=== PATIENT | female | born 1965 | race Caucasian/White ===

== ENCOUNTER 2018-07-11 14:10 | Emergency (ER) | payer OTHER ==
[2018-07-11] MEDS ORDERED: Aspirin 81 MG Tab.Chew PO ONE (14:30)
[2018-07-11] MEDS ORDERED: Nitroglycerin 0.4 MG Tab.SL SL PRN (15:27)
--- NOTE | 2018-07-11 15:27 | EDM.PDOC ---
ED HPI GENERAL MEDICAL PROBLEM - General Chief Complaint: General Stated Complaint: chest pain Time Seen by Provider: 07/11/18 14:53 Source of Information: Reports: Patient History Limitations: Reports: No Limitations - History of Present Illness INITIAL COMMENTS - FREE TEXT/NARRATIVE: This is a 53yo F with chest pressure for the past 48hours. She has had prior episodes that have been short and intermittent. This last episode did not resolve and worsened with exertion. She states she has had some dizziness with with pressure but no other symptoms. She does feel slight shortness of breath. Patient denies prior CAD. Patient does have a smoking history on and off with 5years of 3ppd and other years with 1ppd for a total of approximately 30pack years. She has had multiple surgeries without complications as listed: 2 C-sections, appendectomy, cholecystectomy and hysterectomy. Onset Date: 07/09/18 Duration: Day(s):, Constant Location: Reports: Chest Quality: Reports: Pressure Severity: Mild Improves with: Reports: None Worsens with: Reports: Movement Context: Reports: Activity Associated Symptoms: Reports: Chest Pain, Shortness of Breath Chest Pain Score (Numeric/FACES): 3 - Related Data Allergies Allergy/AdvReac Type Severity Reaction Status Date / Time No Known Allergies Allergy Verified 07/11/18 14:45 Home Meds: Home Meds Aspirin 81 mg PO DAILY 07/11/18 [History] Lisinopril 5 mg PO DAILY 07/11/18 [History] traZODone 200 mg PO DAILY 07/11/18 [History] Past Medical History HEENT History: Reports: Other (See Below) Other HEENT History: glasses 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 ED EXAM, GENERAL - Physical Exam Exam: See Below Exam Limited By: No Limitations General Appearance: Alert, WD/WN, No Apparent Distress Eye Exam: Bilateral Eye: EOMI, PERRL Ears: Normal External Exam Nose: Normal Inspection Throat/Mouth: Normal Inspection, Normal Lips, Normal Teeth Head: Atraumatic, Normocephalic Neck: Normal Inspection, Supple, Non-Tender Respiratory/Chest: No Respiratory Distress, Lungs Clear, Normal Breath Sounds, No Accessory Muscle Use, Chest Non-Tender Cardiovascular: Normal Peripheral Pulses, Regular Rate, Rhythm, No Edema, No JVD , No Murmur, No Rub Peripheral Pulses: 2+: Carotid (L), Carotid (R), Dorsalis Pedis (L), Dorsalis Pedis (R) GI/Abdominal: Normal Bowel Sounds Back Exam: Normal Inspection Extremities: Normal Inspection Neurological: Alert, Oriented, CN II-XII Intact, Normal Cognition, Normal Gait, Normal Reflexes, No Motor/Sensory Deficits Psychiatric: Normal Affect, Normal Mood Course - Vital Signs Last Recorded V/S: Last Vital Signs Temp 36.6 C 07/11/18 14:53 Pulse 67 07/11/18 17:46 Resp 16 07/11/18 17:46 BP 140/84 07/11/18 17:46 Pulse Ox 97 07/11/18 17:46 - Orders/Labs/Meds Labs: Laboratory Tests 07/11/18 07/11/18 07/11/18 Range/Units 14:15 14:15 14:15 WBC 7.4 (4.0-11.0) K/uL RBC 4.65 (3.80-5.80) M/uL Hgb 13.9 (11.5-16.5) g/dL Hct 41.7 (37.0-47.0) % MCV 90 (76-96) fL MCH 29.9 (27.0-32.0) pg MCHC 33.3 (31.0-35.0) g/dL RDW 13.3 (11.0-16.0) % Plt Count 307 (150-500) K/uL MPV 9.5 (6.0-10.0) fL Neut % (Auto) 58.3 (45.0-70.0) % Lymph % (Auto) 29.1 (20.0-40.0) % [place] % (Auto) 10.2 H (3.0-10.0) % Eos % (Auto) 1.9 (1.0-5.0) % Baso % (Auto) 0.5 (0.0-0.5) % Neut # (Auto) 4.29 (2.00-7.50) K/uL Lymph # (Auto) 2.14 (1.50-4.00) K/uL [place] # (Auto) 0.75 (0.20-0.80) K/uL Eos # (Auto) 0.14 (0.04-0.40) K/uL Baso # (Auto) 0.04 (0.02-0.10) K/uL PT 9.3 (9.0-11.5) sec INR 0.9 L (1.0-3.5) D-Dimer, Quantitative (0-400) ng/mL Sodium 145 (136-145) mmol/L Potassium 3.8 (3.5-5.1) mmol/L Chloride 106 (98-107) mmol/L Carbon Dioxide 28.7 (21.0-32.0) mmol/L Anion Gap 14.1 (5.0-15.0) mmol/L BUN 11 (8-26) mg/dL Creatinine 0.79 (0.55-1.02) mg/dL Est Cr Clr Drug Dosing TNP Estimated GFR (MDRD) > 60 (>60) MLS/MIN BUN/Creatinine Ratio 13.9 (6-25) Glucose 109 H (74-100) mg/dL Calcium 9.1 (8.5-10.1) mg/dL Total Bilirubin 0.2 (0.0-1.0) mg/dL AST 25 (15-37) U/L ALT 41 (12-78) U/L Alkaline Phosphatase 88 (46-116) U/L Troponin I < 0.017 (0.000-0.060) ng/mL B-Natriuretic Peptide 113 (0-125) pg/mL Total Protein 7.8 (6.4-8.2) g/dL Albumin 3.8 (3.4-5.0) g/dL Globulin 4.0 (2.2-4.2) g/dL Albumin/Globulin Ratio 0.9 (0.8-2.0) TSH, Ultra Sensitive 2.510 (0.358-3.740) uIU/mL 02/03/19 02/03/19 Range/Units 14:15 17:15 WBC (4.0-11.0) K/uL RBC (3.80-5.80) M/uL Hgb (11.5-16.5) g/dL Hct (37.0-47.0) % MCV (76-96) fL MCH (27.0-32.0) pg MCHC (31.0-35.0) g/dL RDW (11.0-16.0) % Plt Count (150-500) K/uL MPV (6.0-10.0) fL Neut % (Auto) (45.0-70.0) % Lymph % (Auto) (20.0-40.0) % [place] % (Auto) (3.0-10.0) % Eos % (Auto) (1.0-5.0) % Baso % (Auto) (0.0-0.5) % Neut # (Auto) (2.00-7.50) K/uL Lymph # (Auto) (1.50-4.00) K/uL [place] # (Auto) (0.20-0.80) K/uL Eos # (Auto) (0.04-0.40) K/uL Baso # (Auto) (0.02-0.10) K/uL PT (9.0-11.5) sec INR (1.0-3.5) D-Dimer, Quantitative 398 (0-400) ng/mL Sodium (136-145) mmol/L Potassium (3.5-5.1) mmol/L Chloride (98-107) mmol/L Carbon Dioxide (21.0-32.0) mmol/L Anion Gap (5.0-15.0) mmol/L BUN (8-26) mg/dL Creatinine (0.55-1.02) mg/dL Est Cr Clr Drug Dosing Estimated GFR (MDRD) (>60) MLS/MIN BUN/Creatinine Ratio (6-25) Glucose (74-100) mg/dL Calcium (8.5-10.1) mg/dL Total Bilirubin (0.0-1.0) mg/dL AST (15-37) U/L ALT (12-78) U/L Alkaline Phosphatase (46-116) U/L Troponin I 0.018 (0.000-0.060) ng/mL B-Natriuretic Peptide (0-125) pg/mL Total Protein (6.4-8.2) g/dL Albumin (3.4-5.0) g/dL Globulin (2.2-4.2) g/dL Albumin/Globulin Ratio (0.8-2.0) TSH, Ultra Sensitive (0.358-3.740) uIU/mL Meds: Medications Discontinued Medications Generic Name Dose Route Start Last Admin Trade Name Freq PRN Reason Stop Dose Admin Aspirin 324 mg 07/11/18 14:30 07/11/18 14:30 Aspirin PO 07/11/18 14:31 324 mg ONETIME ONE Administration Atorvastatin Calcium Confirm 07/11/18 16:06 07/11/18 16:17 Lipitor Administered 07/11/18 16:07 Not Given Dose 40 mg .ROUTE .STK-MED ONE Atorvastatin Calcium 40 mg 07/11/18 16:16 07/11/18 16:26 Lipitor PO 07/11/18 16:17 40 mg ONETIME ONE Administration Clopidogrel Bisulfate 300 mg 07/11/18 16:15 07/11/18 16:27 Plavix PO 07/11/18 16:16 300 mg ONETIME ONE Administration Metoprolol Succinate 12.5 mg 07/11/18 16:15 Toprol Xl PO DAILY ELIUD Metoprolol Tartrate Confirm 07/11/18 16:11 07/11/18 16:18 Lopressor Administered 07/11/18 16:12 Not Given Dose 25 mg .ROUTE .STK-MED ONE Metoprolol Tartrate 12.5 mg 07/11/18 16:30 07/11/18 16:25 Lopressor PO 12.5 mg Q12H ELIUD Administration Metoprolol Tartrate 25 mg 07/11/18 16:00 Lopressor .ROUTE 07/11/18 16:01 .STK-MED ONE Nitroglycerin 0.4 mg 07/11/18 15:27 07/11/18 15:30 Nitrostat SL 0.4 mg Q5M PRN Administration Chest Pain - Re-Assessments/Exams Free Text/Narrative Re-Assessment/Exam: One Nitro SL tablet given. Symptoms resolved after a few minutes. Symptoms have not returned. Departure - Departure Time of Disposition: 18:00 Disposition: Home, Self-Care 01 Condition: Good Clinical Impression: Chest pressure, Angina pectoris - Discharge Information Instructions: Metoprolol tablets, Clopidogrel tablets, Nonspecific Chest Pain, [id number], Atorvastatin tablets Referrals: PCP,None [Primary Care Provider] - Forms: ED Department Discharge Care Plan Goals: To be in [place] for appointment with Dr. Dahl on Thursday at 8:15 am. Will schedule angiogram for . Take metoprolol before bedtime and have rx filled at pharmacy for metoprolol 12.5 2 x day and atorvastatin 40mg HS and Plavix as ordered. - Problem List & Annotations (1) Chest pressure SNOMED Code(s): 204964061 Code(s): R07.89 - OTHER CHEST PAIN Status: Acute Priority: High (2) Angina pectoris SNOMED Code(s): 748550054 Code(s): I20.9 - ANGINA PECTORIS, UNSPECIFIED Status: Acute Priority: High - Problem List Review Problem List Initiated/Reviewed/Updated: Yes - Assessment/Plan Plan: Discussed plan of care with patient. Counseled on negative EKG, negative troponins and labs. 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 Dahl stone carver and discussed plan for this patient. Risks discussed with patient regarding outpatient workup and current inpatient workup. Patient adamant she would like outpatient work up despite risks of further coronary event and mortality. Patient counseled on f/u appointment on Thursday 815am with Dr. Dahl in clinic for discussion of further workup and possible cath on or other management. Patient agrees with plan of care and f/u. Discussed plan of medications and patient started on Atorvastatin 40mg daily, Plavix 300mg loading dose and 75mg daily after, Metoprolol tartrate 12.5mg BID and ASA 325 already given and 81mg daily after. Patient meds sent by [facility].
[2018-07-11] MEDS ORDERED: Metoprolol Tartrate 25 MG Tab ONE ×2 (16:00→16:11)
[2018-07-11] MEDS ORDERED: atorvaSTATin 40 MG Tab ONE (16:06)
[2018-07-11] MEDS ORDERED: Clopidogrel 75 MG Tab PO ONE (16:15)
[2018-07-11] MEDS ORDERED: Metoprolol Succinate 25 MG Tab.ER PO SCH (16:15)
[2018-07-11] MEDS ORDERED: atorvaSTATin 40 MG Tab PO ONE (16:16)
[2018-07-11] MEDS ORDERED: Metoprolol Tartrate 25 MG Tab PO SCH (16:30)
--- NOTE | 2018-07-12 09:51 | CR ---
DATE OF SERVICE: 07/11/18 CLINICAL DATA: chest pressure, shortness of breath PORTABLE AP CHEST: No priors. The heart size is normal. The lungs are clear. No evidence of acute intrathoracic disease. [id number] [facility]
== END 2018-07-11 18:00 | disposition home or self-care (01) ==
LOC: MERGE 14:10 → LB.ED 14:10
DX: I20.9 Angina pectoris, unspecified (principal); I10 Essential (primary) hypertension; Z79.82 Long term (current) use of aspirin; Z79.899 Other long term (current) drug therapy; Z87.891 Personal history of nicotine dependence
CPT/HCPCS: 36415; 71045; 80053; 83880; 84443; 84484; 85025; 85379; 85610; 93005; 99285; A9270

== ENCOUNTER 2018-07-14 10:39 | Emergency (ER) | payer OTHER ==
--- NOTE | 2018-07-14 11:07 | EDM.PDOC ---
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 No sweating, nausea or vomiting. She had to take 3 doses of S/L nitro and pain resolved in about 45 minutes and the pain completely resolved. Pt went to sleep. Since, she woke up in the morning she has not had any more chest pain or discomfort. No nausea, shortness of breath. Pt was scheduled for coronary angiogram tomorrow, when she called Dr. Dahl's office she was told to come to emergency room for workup. Presently patient has no complaints. Vitals are stable. Onset: Today Onset Date: 07/14/18 Onset Time: 03:00 Duration: Resolved Prior to Arrival Location: Reports: Chest Quality: Reports: Ache Severity: Mild Associated Symptoms: Reports: Chest Pain. Denies: Confusion, Cough, Diaphoresis , Fever/Chills, Headaches, Nausea/Vomiting, Rash, Seizure, Shortness of Breath, Syncope, Weakness - Related Data Allergies Allergy/AdvReac Type Severity Reaction Status Date / Time No Known Allergies Allergy Verified 07/14/18 12:26 Home Meds: Home Meds Lisinopril 5 mg PO DAILY 07/22/16 [History] traZODone HCl [Trazodone HCl] 200 mg PO QPM 07/22/16 [History] Clopidogrel [Plavix] 75 mg PO DAILY 07/14/18 [History] Metoprolol Tartrate 12.5 mg PO DAILY 07/14/18 [History] atorvaSTATin [Lipitor] 40 mg PO BEDTIME 07/14/18 [History] Past Medical History Cardiovascular History: Reports: Blood Clots/VTE/DVT, Hypertension 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 Denies: Lightheadedness GI/Abdominal: Denies: Abdominal Pain, Nausea, Vomiting Musculoskeletal: Denies: Neck Pain, Joint Pain, Joint Swelling Skin: Denies: Bruising, Pruritis, Rash ED EXAM, GENERAL - Physical Exam Exam: See Below Exam Limited By: No Limitations General Appearance: Alert, WD/WN, No Apparent Distress Eye Exam: Bilateral Eye: EOMI, PERRL Ears: Normal External Exam, Normal Canal, Hearing Grossly Normal, Normal TMs Ear Exam: Bilateral Ear: Auricle Normal, Canal Normal, TM normal Nose: Normal Inspection, Normal Mucosa, No Blood Throat/Mouth: Normal Inspection, Normal Lips, Normal Teeth, Normal Gums, Normal Oropharynx, Normal Voice, No Airway Compromise Head: Atraumatic, Normocephalic Neck: Normal Inspection, Supple, Non-Tender, Full Range of Motion Respiratory/Chest: No Respiratory Distress, Lungs Clear, Normal Breath Sounds, No Accessory Muscle Use, Chest Non-Tender Cardiovascular: Normal Peripheral Pulses, Regular Rate, Rhythm, No Edema, No Gallop, No JVD, No Murmur, No Rub GI/Abdominal: Normal Bowel Sounds, Soft, Non-Tender, No Organomegaly, No Distention, No Abnormal Bruit, No Mass Extremities: Normal Inspection, Normal Range of Motion, Non-Tender, Normal Capillary Refill, No Pedal Edema Neurological: Alert, Oriented, CN II-XII Intact, Normal Cognition, Normal Gait, Normal Reflexes, No Motor/Sensory Deficits Skin Exam: Warm, Intact EKG INTERPRETATION Rhythm: NSR Rate (Beats/Min): 71 [place]: Normal P-Wave: Present QRS: Normal ST-T: Normal QT: Normal Course - Vital Signs Text/Narrative:: Patient has been asymptomatic in the emergency room. Vitals are stable. He blood pressure is 140/90mmhg, she only took her [id number] today and has not taken other meds. Her EKG is in normal sinus rhythm. CBC stable. Troponin is elevated at 2.01.Appears like Non-STEMI.She did receive metoprolol 25mg orally. I did contact [facility], And discuss patient with Dr. Agustin, Embroiderer Hand emulsion operator.Per his recommendation did give plavix 300mg orally and start her on heparin drip at 4000 units bolus followed by 1000units per hr. Pt is stable and has been chest pain free since she has been in the emergency room. Plan is to transfer patient to [facility] under care of Dr. Cordova, for further workup. Pt is hemodynamically stable at the time of transfer. - Orders/Labs/Meds Orders: Active Orders 24 hr Category Date Time Status EKG Documentation Completion [RC] ASDIRECTED Care 07/14/18 11:01 Active Chest 1V Frontal [CR] Stat Exams 07/14/18 11:01 Taken COMPREHENSIVE METABOLIC PN,CMP [CHEM] Stat Lab 07/14/18 11:05 Received TROPONIN I [CHEM] Stat Lab 07/14/18 11:05 Received Labs: Laboratory Tests 07/14/18 Range/Units 11:05 WBC 10.1 D (4.0-11.0) K/uL RBC 4.57 (3.80-5.80) M/uL Hgb 13.6 (11.5-16.5) g/dL Hct 41.0 (37.0-47.0) % MCV 90 (76-96) fL MCH 29.8 (27.0-32.0) pg MCHC 33.2 (31.0-35.0) g/dL RDW 13.3 (11.0-16.0) % Plt Count 315 (150-500) K/uL MPV 9.7 (6.0-10.0) fL Neut % (Auto) 69.7 (45.0-70.0) % Lymph % (Auto) 21.6 (20.0-40.0) % [place] % (Auto) 7.9 (3.0-10.0) % Eos % (Auto) 0.4 L (1.0-5.0) % Baso % (Auto) 0.4 (0.0-0.5) % Neut # (Auto) 7.02 (2.00-7.50) K/uL Lymph # (Auto) 2.18 (1.50-4.00) K/uL [place] # (Auto) 0.80 (0.20-0.80) K/uL Eos # (Auto) 0.04 (0.04-0.40) K/uL Baso # (Auto) 0.04 (0.02-0.10) K/uL Departure - Departure Time of Disposition: 13:15 Disposition: DC/Tfer to Acute Hospital 02 Condition: Fair Clinical Impression: Non-STEMI (non-ST elevated myocardial infarction) - Discharge Information *PRESCRIPTION DRUG MONITORING PROGRAM REVIEWED*: Not Applicable *COPY OF PRESCRIPTION DRUG MONITORING REPORT IN PATIENT MAURILIO: Not Applicable Referrals: PCP,None [Primary Care Provider] - - Problem List & Annotations (1) Non-STEMI (non-ST elevated myocardial infarction) SNOMED Code(s): 17640446 Code(s): I21.4 - NON-ST ELEVATION (NSTEMI) MYOCARDIAL INFARCTION Status: Acute Current Visit: Yes - Problem List Review Problem List Initiated/Reviewed/Updated: Yes - My Orders Last 24 Hours: My Active Orders 07/14/18 11:01 EKG Documentation Completion [RC] ASDIRECTED Chest 1V Frontal [CR] Stat 07/14/18 11:05 COMPREHENSIVE METABOLIC PN,CMP [CHEM] Stat TROPONIN I [CHEM] Stat - Assessment/Plan Last 24 Hours: My Active Orders 07/14/18 11:01 EKG Documentation Completion [RC] ASDIRECTED Chest 1V Frontal [CR] Stat 07/14/18 11:05 COMPREHENSIVE METABOLIC PN,CMP [CHEM] Stat TROPONIN I [CHEM] Stat Assessment:: Non Stemi Plan: Patient has been asymptomatic in the emergency room. Vitals are stable. He blood pressure is 140/90mmhg, she only took her [id number] today and has not taken other meds. Her EKG is in normal sinus rhythm. CBC stable. Troponin is elevated at 2.01.Appears like Non-STEMI.She did receive metoprolol 25mg orally. [facility] And discuss patient with Dr. Agustin, Embroiderer Hand emulsion operator.Per his recommendation did give plavix 300mg orally and start her on heparin drip at 4000 units bolus followed by 1000units per hr. Pt is stable and has been chest pain free since she has been in the emergency room. Plan is to transfer patient to [facility] under care of Dr. Cordova, for further workup. [place] [facility] helping with transfer.Pt is hemodynamically stable at the time of transfer.
[2018-07-14] MEDS ORDERED: Metoprolol Tartrate 25 MG Tab PO ONE (11:55)
--- NOTE | 2018-07-14 11:58 | CR ---
DATE OF SERVICE: 07/14/18 CLINICAL DATA: chest pain AP PORTABLE CHEST: The heart size is normal. The lungs are clear. No pneumothorax. No pleural effusions. No evidence of acute intrathoracic disease. [id number] [facility]
[2018-07-14] MEDS ORDERED: Metoprolol Tartrate 25 MG Tab ONE (12:05)
[2018-07-14] MEDS ORDERED: Clopidogrel 75 MG Tab ONE (12:12)
[2018-07-14] MEDS ORDERED: Clopidogrel 75 MG Tab PO ONE (12:14)
[2018-07-14] MEDS ORDERED: Heparin Sodium/D5W 25,000 UNITS/500 ML BAG IV SCH (12:15)
[2018-07-14] MEDS ORDERED: Heparin Sodium 5,000 UNITS/0.5 ML Syringe IVPUSH ONE (12:17)
== END 2018-07-14 13:25 ==
LOC: LB.ED 10:39
DX: I21.4 Non-ST elevation (NSTEMI) myocardial infarction (principal); I10 Essential (primary) hypertension; Z79.899 Other long term (current) drug therapy
CPT/HCPCS: 36415; 71045; 80053; 84484; 85025; 85610; 85730; 93005; 96374; 99285; A9270; J1644

== ENCOUNTER 2018-12-07 12:46 | Emergency (ER) | payer OTHER ==
--- NOTE | 2018-12-07 13:18 | EDM.PDOC ---
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 She reports having a regular appointment with cardiology tomorrow for follow-up. States no change in vision. 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 States some stress, but enjoys the work. She did take time to relax on the weekend. States she hasn't taken any nitro and no chest pain with this. - Related Data Allergies Allergy/AdvReac Type Severity Reaction Status Date / Time No Known Allergies Allergy Verified 12/07/18 13:10 Home Meds: Home Meds Lisinopril 5 mg PO DAILY 07/22/16 [History] traZODone HCl [Trazodone HCl] 200 mg PO QPM 07/22/16 [History] Aspirin 81 mg PO DAILY 07/11/18 [History] Metoprolol Tartrate 12.5 mg PO DAILY 07/14/18 [History] atorvaSTATin [Lipitor] 40 mg PO BEDTIME 07/14/18 [History] Ticagrelor [Brilinta] 90 mg PO BID 12/07/18 [History] Past Medical History HEENT History: Reports: Other (See Below) Other HEENT History: glasses Cardiovascular History: Reports: Blood Clots/VTE/DVT, Hypertension Other Cardiovascular History: hx deep vein blood clot 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 Denies: Fever, Chills HEENT: Reports: Glasses. Denies: Ear Pain, Eye Pain, Sinus Problem Respiratory: Reports: No Symptoms Cardiovascular: Reports: Lightheadedness. Denies: Chest Pain, Blood Pressure Problem, Dyspnea on Exertion Endocrine: Reports: No Symptoms GI/Abdominal: Reports: No Symptoms : Reports: No Symptoms Musculoskeletal: Reports: No Symptoms Skin: Reports: No Symptoms Neurological: Reports: Dizziness. Denies: Headache Psychiatric: Reports: No Symptoms Hematologic/Lymphatic: Reports: No Symptoms ED EXAM, GENERAL - Physical Exam Exam: See Below Exam Limited By: No Limitations General Appearance: Alert, No Apparent Distress Ears: Hearing Grossly Normal Nose: Normal Inspection Throat/Mouth: Normal Voice, No Airway Compromise Head: Atraumatic, Normocephalic Neck: Normal Inspection, Non-Tender, Full Range of Motion Respiratory/Chest: No Respiratory Distress, Lungs Clear, Normal Breath Sounds Cardiovascular: Normal Peripheral Pulses, Regular Rate, Rhythm, No Edema, No Murmur Peripheral Pulses: 2+: Dorsalis Pedis (L), Dorsalis Pedis (R) GI/Abdominal: Normal Bowel Sounds, Soft, Non-Tender Extremities: Normal Inspection, Normal Range of Motion, Non-Tender, Normal Capillary Refill Neurological: Alert, Oriented, Normal Cognition Psychiatric: Normal Affect, Normal Mood Skin Exam: Warm, Dry, Normal Color Lymphatic: No Adenopathy Course - Vital Signs Last Recorded V/S: Last Vital Signs Temp 98.1 F 12/07/18 12:55 Pulse 52 L 12/07/18 12:55 Resp 16 12/07/18 12:55 BP 167/80 H 12/07/18 12:55 Pulse Ox 96 12/07/18 12:55 - Orders/Labs/Meds Labs: Laboratory Tests 12/07/18 12/07/18 12/07/18 Range/Units 13:20 13:20 13:20 WBC 6.4 D (4.0-11.0) K/uL RBC 4.47 (3.80-5.80) M/uL Hgb 13.2 (11.5-16.5) g/dL Hct 40.3 (37.0-47.0) % MCV 90 (76-96) fL MCH 29.5 (27.0-32.0) pg MCHC 32.8 (31.0-35.0) g/dL RDW 13.7 (11.0-16.0) % Plt Count 309 (150-500) K/uL MPV 9.9 (6.0-10.0) fL Neut % (Auto) 60.6 (45.0-70.0) % Lymph % (Auto) 27.0 (20.0-40.0) % [place] % (Auto) 9.4 (3.0-10.0) % Eos % (Auto) 2.7 (1.0-5.0) % Baso % (Auto) 0.3 (0.0-0.5) % Neut # (Auto) 3.85 (2.00-7.50) K/uL Lymph # (Auto) 1.72 (1.50-4.00) K/uL [place] # (Auto) 0.60 (0.20-0.80) K/uL Eos # (Auto) 0.17 (0.04-0.40) K/uL Baso # (Auto) 0.02 (0.02-0.10) K/uL Sodium 144 (136-145) mmol/L Potassium 4.5 (3.5-5.1) mmol/L Chloride 107 (98-107) mmol/L Carbon Dioxide 31.5 (21.0-32.0) mmol/L Anion Gap 10.0 (5.0-15.0) mmol/L BUN 9 D (8-26) mg/dL Creatinine 0.88 (0.55-1.02) mg/dL Est Cr Clr Drug Dosing 57.80 mL/min Estimated GFR (MDRD) > 60 (>60) MLS/MIN BUN/Creatinine Ratio 10.2 (6-25) Glucose 91 (74-100) mg/dL Calcium 8.8 (8.5-10.1) mg/dL Total Bilirubin 0.3 (0.0-1.0) mg/dL AST 23 (15-37) U/L ALT 31 (12-78) U/L Alkaline Phosphatase 107 (46-116) U/L Troponin I < 0.017 D (0.000-0.060) ng/mL Total Protein 7.6 (6.4-8.2) g/dL Albumin 3.9 (3.4-5.0) g/dL Globulin 3.7 (2.2-4.2) g/dL Albumin/Globulin Ratio 1.1 (0.8-2.0) TSH, Ultra Sensitive 2.598 (0.358-3.740) uIU/mL Departure - Departure Time of Disposition: 12:58 Disposition: Home, Self-Care 01 Condition: Good Clinical Impression: Dizziness - Discharge Information *PRESCRIPTION DRUG MONITORING PROGRAM REVIEWED*: Not Applicable *COPY OF PRESCRIPTION DRUG MONITORING REPORT IN PATIENT MAURILIO: Not Applicable Instructions: Heat Exhaustion Information, Heat Illness-SportsMed Referrals: PCP,None [Primary Care Provider] - Forms: ED Department Discharge Additional Instructions: Return to the ER or clinic if you start to feel worse or need anything else. Have a great day and take care. - Assessment/Plan Plan: Dizziness of unknown etiology: Labs completed CBC, CMP, TSH and Troponin with pt hx of CAD and stent in July. Reviewed results with pt and no contributing results noted. Clinical exam shows some decrease in hydration and some decrease in regular food intake. Dizziness most likely from inadequate fluid intake and limited calorie intake. Recommend to increase fluids of 1-2 glasses daily in addition to her usual and small frequent meals. RTC as needed and follow-up with cardiology tomorrow as scheduled.
== END 2018-12-07 14:10 | disposition home or self-care (01) ==
LOC: LB.ED 12:46
DX: R42 Dizziness and giddiness (principal)
CPT/HCPCS: 36415; 80053; 84443; 84484; 85025; 99283

== ENCOUNTER 2019-04-30 14:51 | Emergency (ER) | payer OTHER ==
[2019-04-30] MEDS: Aspirin 81 MG Tab.Chew PO SCH (14:51)
--- NOTE | 2019-04-30 16:48 | ER ---
HPI: A 54-year-old lady here with complaints of not feeling well since about 12:30 p.m. today. She states that she is having a little bit of pressure in her left arm and a little bit of nausea. She is not having any chest pain. She did have an [place] back in July of 2018, which required 1 stent. The patient is concerned that she could be having another heart issue. She is not feeling sweaty. She has not been running a fever. She states she just does not feel right. CURRENT MEDICATIONS: Include Lipitor, Brilinta, lisinopril, aspirin, metoprolol, and trazodone at bedtime. PHYSICAL EXAMINATION: GENERAL APPEARANCE: The patient is awake and alert. No obvious distress. VITAL SIGNS: Initial vital signs reveal she is afebrile, pulse of 62, blood pressure 152/71, O2 sats are 99% on room air. HEENT: Oral mucous membranes are slightly dry. Tonsils are not enlarged and injected. Pharynx not inflamed. NECK: Supple. LUNGS: Clear. CARDIAC: Heart sounds distinct. S1, S2 present. No murmurs. ABDOMEN: Soft, nontender. SKIN: Warm and dry. LABORATORY DATA: Initial EKG shows a slightly bradycardic rhythm without any ST elevation or depression noted. Regular rate and rhythm. Lab work includes a CBC which is normal. CMP shows a slightly elevated sodium level of 148. Kidney function is good. Liver function is good. Troponin is negative or normal. At this point, we did repeat an EKG showing a normal sinus rhythm. Again, just slightly bradycardic. DIAGNOSES: 1. Fatigue. 2. Hypernatremia, mild in nature. TREATMENT PLAN: I advised the patient to go home. Continue taking her medications and drink more water. She states that she has been working 2 or 3 jobs lately and does get stressed out at times, but she thought she was doing pretty good this morning. I advised the patient to follow up as needed if she has any further questions or complaints or any new symptoms develop. CRS/MODL /[id number]
--- NOTE | 2019-05-01 12:21 | CR ---
Date of Service: 04/30/19 Clinical Data: chest pressure AP PORTABLE CHEST: Comparison is made to a prior exam dated 07/14/18. The heart size is normal. The lungs are clear. No pneumothorax. No pleural effusions. No evidence of acute intrathoracic disease. [id number] [facility]
== END 2019-04-30 16:12 | disposition home or self-care (01) ==
LOC: LB.ED 14:51
DX: E87.0 Hyperosmolality and hypernatremia (principal); I25.2 Old myocardial infarction; Z95.5 Presence of coronary angioplasty implant and graft; Z79.82 Long term (current) use of aspirin; Z79.899 Other long term (current) drug therapy
CPT/HCPCS: 36415; 71045; 80053; 84484; 85025; 93005; 99284-25; A9270-GY

== ENCOUNTER 2020-01-13 08:35 | Emergency (ER) | payer OTHER ==
--- NOTE | 2020-01-13 09:11 | EDM.PDOC ---
ED HPI GENERAL MEDICAL PROBLEM - General Chief Complaint: Upper Extremity Injury/Pain Stated Complaint: shoulder pain Time Seen by Provider: 01/13/20 08:55 Source of Information: Reports: Patient History Limitations: Reports: No Limitations - History of Present Illness INITIAL COMMENTS - FREE TEXT/NARRATIVE: Patient states she has had intermittent sharp pinpoint pain under her right scapula. Denies any injury, trauma, CP, SOB, cough, leg pain/swelling. She had a cardiac stent placed in 2019 and is currently taking brillinta. The pain has become more frequent today which prompted presentation. Lung sounds clear and equal bilateral. Onset: Today, Other Duration: Day(s): (2), Colic, Getting Worse, Waxing/Waning Location: Reports: Other (right scapula) Quality: Reports: Sharp Severity: Moderate Improves with: Reports: None Worsens with: Reports: None Associated Symptoms: Reports: No Other Symptoms Right Lower Back Pain Score (Numeric/FACES): 7 - Related Data Allergies Allergy/AdvReac Type Severity Reaction Status Date / Time No Known Allergies Allergy Verified 01/13/20 08:45 Home Meds: Home Meds Lisinopril 5 mg PO DAILY 07/22/16 [History] traZODone HCl [Trazodone HCl] 200 mg PO QPM 07/22/16 [History] Aspirin 81 mg PO DAILY 07/11/18 [History] Metoprolol Tartrate 12.5 mg PO BID 07/14/18 [History] atorvaSTATin [Lipitor] 40 mg PO BEDTIME 07/14/18 [History] Ticagrelor [Brilinta] 90 mg PO BID 12/07/18 [History] Metaxalone [Skelaxin] 800 mg PO TID PRN #20 tab 01/13/20 [Rx] Past Medical History HEENT History: Reports: Other (See Below) Other HEENT History: glasses Cardiovascular History: Reports: Blood Clots/VTE/DVT, Hypertension, [place], Stents Other Cardiovascular History: hx deep vein blood clot, hx [place] 07/2018 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[employer]IST History: C section x 2, hysterectomy Psychiatric History: Reports: Other (See Below) Other Psychiatric History: insomnia - Infectious Disease History Infectious Disease History: Reports: Chicken Pox - Past Surgical History GI Surgical History: Reports: Appendectomy, Cholecystectomy Female Surgical History: Reports: Section, Hysterectomy Social & Family History - Family History Family Medical History: Noncontributory - Caffeine Use Caffeine Use: Reports: Coffee ED ROS GENERAL - Review of Systems Review Of Systems: See Below Constitutional: Reports: No Symptoms HEENT: Reports: No Symptoms Respiratory: Reports: No Symptoms. Denies: Shortness of Breath, Cough Cardiovascular: Reports: No Symptoms Endocrine: Reports: No Symptoms GI/Abdominal: Reports: No Symptoms : Reports: No Symptoms Musculoskeletal: Reports: Shoulder Pain Skin: Reports: No Symptoms Neurological: Reports: No Symptoms Psychiatric: Reports: No Symptoms Immunologic: Reports: No Symptoms ED EXAM, GENERAL - Physical Exam Exam: See Below Exam Limited By: No Limitations General Appearance: Alert, No Apparent Distress Neck: Normal Inspection Respiratory/Chest: No Respiratory Distress, Lungs Clear, Normal Breath Sounds Cardiovascular: No Murmur GI/Abdominal: Normal Bowel Sounds, Soft, Non-Tender Back Exam: Normal Inspection. No: CVA Tenderness (R), CVA Tenderness (L) Extremities: Normal Inspection, Normal Range of Motion, Normal Capillary Refill Neurological: Alert, Oriented Psychiatric: Normal Affect Skin Exam: Warm, Dry, Intact Lymphatic: No Adenopathy Course - Vital Signs Last Recorded V/S: Last Vital Signs Temp 98.4 F 01/13/20 08:46 Pulse 57 L 01/13/20 08:46 Resp 18 01/13/20 08:46 BP 141/76 H 01/13/20 08:46 Pulse Ox 98 01/13/20 08:46 - Orders/Labs/Meds Orders: Active Orders 24 hr Category Date Time Status EKG Documentation Completion [RC] ASDIRECTED Care 01/13/20 09:00 Active EKG 12 Lead [EK] Routine Ther 01/13/20 08:49 Ordered Departure - Departure Time of Disposition: 10:50 Disposition: Home, Self-Care 01 Condition: Good Clinical Impression: Muscle ache - Discharge Information *PRESCRIPTION DRUG MONITORING PROGRAM REVIEWED*: No *COPY OF PRESCRIPTION DRUG MONITORING REPORT IN PATIENT MAURILIO: No Prescriptions: Metaxalone [Skelaxin] 800 mg PO TID PRN #20 tab PRN Reason: Muscle Spasm Referrals: Joseph Anderson MD [Primary Care Provider] - Forms: ED Summary Discharge, ED Department Discharge Additional Instructions: You may take the muscle relaxer and tylenol for pain. Also the heat patches we discussed. Please return to ED for any increased or new concerning symptoms. If pain persists, please follow up with PMD. Sepsis Event Note (ED) - Evaluation Sepsis Screening Result: No Definite Risk - Focused Exam Vital Signs: Vital Signs Temp Pulse Resp BP Pulse Ox 01/13/20 08:46 98.4 F 57 L 18 141/76 H 98 - My Orders Last 24 Hours: My Active Orders 01/13/20 08:49 EKG 12 Lead [EK] Routine 01/13/20 09:00 EKG Documentation Completion [RC] ASDIRECTED - Assessment/Plan Last 24 Hours: My Active Orders 01/13/20 08:49 EKG 12 Lead [EK] Routine 01/13/20 09:00 EKG Documentation Completion [RC] ASDIRECTED
--- NOTE | 2020-01-13 10:08 | CR ---
DATE OF SERVICE: 01/13/2020 CLINICAL DATA: Right scapula/rib pain PA Chest: Comparison is made to a prior exam dated 30 April 2019. The heart size is normal. The lungs are clear. No pneumothorax. No pleural effusions. There is degenerative disc disease throughout the thoracic spine. No evidence of acute intrathoracic disease. MTDD
--- NOTE | 2020-01-13 10:11 | CR ---
DATE OF SERVICE: 01/13/2020 CLINICAL DATA: Pain in scapula region Right shoulder: No priors. There is diffuse osteopenia. 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 No acute fracture or dislocation. No lytic or blastic bone lesions. MTDD
== END 2020-01-13 09:50 | disposition home or self-care (01) ==
LOC: LB.ED 08:35
DX: M25.511 Pain in right shoulder (principal); I10 Essential (primary) hypertension; I25.2 Old myocardial infarction; Z90.49 Acquired absence of other specified parts of digestive tract; Z90.89 Acquired absence of other organs; Z90.710 Acquired absence of both cervix and uterus; Z79.82 Long term (current) use of aspirin; Z79.899 Other long term (current) drug therapy; Z79.02 Long term (current) use of antithrombotics/antiplatelets
CPT/HCPCS: 71045; 73030-RT; 93005; 99283; 99283-25

== ENCOUNTER 2022-05-25 15:40 | Emergency (ER) | payer OTHER ==
[2022-05-25] MEDS ORDERED: GI Cocktail Oral Solution 30 ML PO ONE (16:34)
[2022-05-25] MEDS ORDERED: Aspirin 81 MG Tab.Chew PO ONE (16:36)
[2022-05-25] MEDS ORDERED: Nitroglycerin 0.4 MG Tab.SL SL ONE (16:36)
[2022-05-25] MEDS ORDERED: Sodium Chloride 0.9% 10 ML Syringe FLUSH PRN (16:40)
[2022-05-25 16:48] LABS: ESTIMATED GFR 77 mL/min (>60); TROPONIN I HIGH SENSITIVITY 6.1 pg/ml (<=60.4)
== END 2022-05-25 17:40 | disposition home or self-care (01) ==
LOC: LB.ED 15:40
DX: K21.9 Gastro-esophageal reflux disease without esophagitis (principal); I10 Essential (primary) hypertension; I25.2 Old myocardial infarction; Z79.899 Other long term (current) drug therapy; Z79.82 Long term (current) use of aspirin; Z90.49 Acquired absence of other specified parts of digestive tract; Z90.710 Acquired absence of both cervix and uterus; Z87.891 Personal history of nicotine dependence
CPT/HCPCS: 36415; 80053; 83735; 84100; 84484; 85025; 85379; 93005; 99285; A9270

== ENCOUNTER 2023-07-15 11:27 | Emergency (ER) | payer OTHER ==
[2023-07-15] MEDS ORDERED: Sodium Chloride 0.9% 10 ML Syringe FLUSH PRN (11:43)
[2023-07-15 12:02] LABS: HEMATOCRIT 47.1 % (37.0-47.0); HEMOGLOBIN 13.5 g/dL (11.5-16.5); MEAN CORPUSCULAR HEMOGLOBIN 29.2 pg (27.0-32.0); MEAN CORPUSCULAR HGB CONC 28.7 g/dL (31.0-35.0); MEAN PLATELET VOLUME 10.3 fL (6.0-10.0); RED BLOOD CELL COUNT 4.62 M/uL (3.80-5.80); RED CELL DISTRIBUTION WIDTH 13.6 % (11.0-16.0); WHITE BLOOD CELL COUNT,WBC 7.4 K/uL (4.0-11.0)
[2023-07-15 12:22] LABS: A/G RATIO 0.9 (0.8-2.0); ALBUMIN 3.5 g/dL (3.4-5.0); ANION GAP 12.8 mmol/L (5.0-15.0); BILIRUBIN TOTAL 0.3 mg/dL (0.0-1.0); BUN/CREATININE RATIO 8.6 (6-25); CALCIUM 8.8 mg/dL (8.5-10.1); CARBON DIOXIDE,CO2 26.4 mmol/L (21.0-32.0); CREATININE 0.81 mg/dL (0.55-1.02); EST CRCL DRUG DOSING (CG) 59.15 mL/min; POTASSIUM,K 4.2 mmol/L (3.5-5.1); PROTEIN TOTAL,TP 7.2 g/dL (6.4-8.2); TROPONIN I HIGH SENSITIVITY 4.7 pg/ml (<=60.4)
== END 2023-07-15 13:11 | disposition home or self-care (01) ==
LOC: LB.ED 11:27
DX: T59.811A Toxic effect of smoke, accidental (unintentional), initial encounter (principal); I10 Essential (primary) hypertension; I25.2 Old myocardial infarction; Z95.5 Presence of coronary angioplasty implant and graft; Z79.899 Other long term (current) drug therapy; Z79.82 Long term (current) use of aspirin
CPT/HCPCS: 36415; 71045; 80053; 84484; 85027; 93005; 93010; 99283; 99284